=== PATIENT | male | born 1945 ===

== ENCOUNTER 2020-01-19 07:18 | Outpatient (CLI) | payer OTHER | END 2020-01-19 07:22 | disposition home or self-care (01) | LOC: TOM 07:18 | PROVIDERS: ATTEND Internal Medicine | DX: R10.33 Periumbilical pain (principal); K62.5 Hemorrhage of anus and rectum; R19.4 Change in bowel habit ==

== ENCOUNTER 2021-07-15 14:06 | Outpatient (CLI) | payer OTHER | END 2021-07-15 14:07 | disposition home or self-care (01) | LOC: RAD 14:06 | DX: Z96.653 Presence of artificial knee joint, bilateral (principal) ==